=== PATIENT | male | born 1995 | race American Indian/Alaskan Native ===

== ENCOUNTER 2020-11-27 00:58 | Emergency (ER) | payer OTHER ==
[2020-11-27] MEDS ORDERED: methylPREDNISolone Sod Succinate 125 MG/2 ML INJ IV ONE (02:31)
[2020-11-27] MEDS ORDERED: ALBUTEROL 2.5 MG/3 ML NEBU IH ONE (02:31)
[2020-11-27] MEDS ORDERED: IPRATROPIUM 0.02% NEBU 2.5 ML IH ONE (02:31)
[2020-11-27] MEDS ORDERED: MAGNESIUM SULFATE 2 GM/50 ML BAG IV ONE (02:37)
--- NOTE | 2020-11-27 03:13 | XRay Report ---
CHEST 1 VIEW 11/27/2020 2:02 AM INDICATION / CLINICAL INFORMATION: dyspnea, wheezing. COMPARISON: None available. FINDINGS: SUPPORT DEVICES: None. HEART / MEDIASTINUM: No significant abnormality. LUNGS / PLEURA: No significant pulmonary or pleural abnormality. No pneumothorax. ADDITIONAL FINDINGS: No significant additional findings. IMPRESSION: 1. No acute findings. Signer Name: Yaakov Ricks MD Signed: 11/27/2020 3:08 AM Workstation Name: [id number]
--- NOTE | 2020-11-27 04:35 | Emergency Department Report ---
ED Shortness of Breath HPI - General Chief Complaint: Dyspnea/Respdistress Stated Complaint: ASTHMA Source: patient Mode of arrival: Ambulatory Limitations: No Limitations - History of Present Illness Initial Comments: Patient is a 25-year-old -[place] male with a history of asthma and who usually uses albuterol inhaler at home as needed for shortness of breath presents to the ED with worsening shortness of breath, persistent dry cough and chest tightness and wheezing for the last 1 week, worse in the last 2 days. Patient states that in the last 6 hours, the shortness of breath and wheezing and chest tightness have worsened. Patient states that he ran out of his albuterol inhaler a week ago and has not had it refilled because he does not have insurance and he also does not have a primary care physician. Patient denies dizziness, syncope, fever, chills, nausea, vomiting, chest pain, abdominal pain, neck pain, diarrhea, lightheadedness, headache, change in vision, sore throat, nasal and sinus congestion. MD Complaint: shortness of breath, cough, "asthma attack" -: Sudden, week(s) (1) Severity: severe Pain Scale: 7 Quality: other (tightness) Consistency: constant Improves With: nothing Worsens With: nothing Known History Of: asthma Context: recent URI Associated Symptoms: denies other symptoms, cough Treatments Prior to Arrival: none - Related Data Home Oxygen Therapy: No Previous Rx's Medication Instructions Recorded Last Taken Type Albuterol Sulfate [Proventil Hfa] 1 - 2 puff IH Q6H PRN #1 hfa.aer.ad 11/27/20 Unknown Rx Benzonatate [Tessalon Perles] 100 mg PO Q8HR #30 capsule 11/27/20 Unknown Rx Cetirizine HCl [Zyrtec 10mg tab] 10 mg PO DAILY #30 tablet 11/27/20 Unknown Rx methylPREDNISolone [Medrol 4MG 4 mg PO DAILY #21 tab.ds.pk 11/27/20 Unknown Rx DOSEPAK (21 tabs)] Allergies Allergy/AdvReac Type Severity Reaction Status Date / Time No Known Allergies Allergy Unverified 11/27/20 01:39 ED Review of Systems ROS: Stated complaint: ASTHMA Other details as noted in HPI Constitutional: denies: chills, fever Eyes: denies: eye pain, eye discharge, vision change ENT: denies: ear pain, throat pain Respiratory: cough, shortness of breath, wheezing Cardiovascular: chest pain (chest tightness). denies: palpitations Endocrine: no symptoms reported Gastrointestinal: denies: abdominal pain, nausea, diarrhea Genitourinary: denies: urgency, dysuria Musculoskeletal: denies: back pain, joint swelling, arthralgia Skin: denies: rash, lesions Neurological: denies: headache, weakness, paresthesias Psychiatric: denies: anxiety, depression Hematological/Lymphatic: denies: easy bleeding, easy bruising ED Past Medical Hx - Past Medical History Hx Asthma: Yes - Surgical History Past Surgical History?: No - Social History Smoking Status: Never Smoker Substance Use Type: None - Medications Home Medications: Home Medications Medication Instructions Recorded Confirmed Last Taken Type Albuterol Sulfate [Proventil Hfa] 1 - 2 puff IH Q6H PRN #1 hfa.aer.ad 11/27/20 Unknown Rx Benzonatate [Tessalon Perles] 100 mg PO Q8HR #30 capsule 11/27/20 Unknown Rx Cetirizine HCl [Zyrtec 10mg tab] 10 mg PO DAILY #30 tablet 11/27/20 Unknown Rx methylPREDNISolone [Medrol 4MG 4 mg PO DAILY #21 tab.ds.pk 11/27/20 Unknown Rx DOSEPAK (21 tabs)] ED Physical Exam - General Limitations: No Limitations General appearance: alert, in no apparent distress - Head Head exam: Present: atraumatic, normocephalic, normal inspection - Eye Eye exam: Present: normal appearance, PERRL, EOMI Pupils: Present: normal accommodation - ENT ENT exam: Present: normal exam, normal orophraynx, mucous membranes moist, TM's normal bilaterally, normal external ear exam - Neck Neck exam: Present: normal inspection, full ROM - Respiratory Respiratory exam: Present: wheezes (Diffuse coarse wheezes throughout), accessory muscle use. Absent: respiratory distress, rales, rhonchi, chest wall tenderness, prolonged expiratory - Cardiovascular Cardiovascular Exam: Present: normal rhythm, tachycardia, normal heart sounds. Absent: systolic murmur, diastolic murmur, rubs, gallop - GI/Abdominal GI/Abdominal exam: Present: soft, normal bowel sounds. Absent: tenderness, guarding, rebound, hyperactive bowel sounds, hypoactive bowel sounds, organomegaly - Extremities Exam Extremities exam: Present: normal inspection, full ROM, normal capillary refill - Back Exam Back exam: Present: normal inspection, full ROM. Absent: tenderness, CVA tenderness (R), CVA tenderness (L), muscle spasm, paraspinal tenderness, vertebral tenderness - Neurological Exam Neurological exam: Present: alert, oriented X3, CN II-XII intact, normal gait, reflexes normal - Psychiatric Psychiatric exam: Present: normal affect, normal mood - Skin Skin exam: Present: warm, dry, intact, normal color. Absent: rash ED Course Vital Signs 11/27/20 01:38 Temperature 98.0 F Pulse Rate 113 H Respiratory 18 Rate Blood Pressure 136/106 O2 Sat by Pulse 94 Oximetry ED Medical Decision Making - Radiology Data Radiology results: report reviewed, image reviewed [address] [address] XRay Report Signed Patient: REGGIE LIMA MR#: [id number] : 1995 Acct:[id number] Age/Sex: 25 / M ADM Date: 11/27/20 Loc: ED Attending Dr: Ordering Physician: RAO CRUZ Date of Service: 11/27/20 Procedure(s): XR chest 1V ap Accession Number(s): [id number] cc: RAO CRUZ Fluoro Time In Minutes: CHEST 1 VIEW 11/27/2020 2:02 AM INDICATION / CLINICAL INFORMATION: dyspnea, wheezing. COMPARISON: None available. FINDINGS: SUPPORT DEVICES: None. HEART / MEDIASTINUM: No significant abnormality. LUNGS / PLEURA: No significant pulmonary or pleural abnormality. No pneumothorax. ADDITIONAL FINDINGS: No significant additional findings. IMPRESSION: 1. No acute findings. Signer Name: Yaakov Ricks MD Signed: 11/27/2020 3:08 AM Workstation Name: [id number] Transcribed By: SS Dictated By: Yaakov Ricks MD Electronically Authenticated By: Yaakov Ricks MD Signed Date/Time: 11/27/20307 DD/ 7 TD/TT: - Medical Decision Making This is a 25-year-old -[place] male with a history of asthma and who usually uses albuterol inhaler at home as needed for shortness of breath presents to the ED with worsening shortness of breath, persistent dry cough and chest tightness and wheezing for the last 1 week, worse in the last 2 days. Patient states that in the last 6 hours, the shortness of breath and wheezing and chest tightness have worsened. Patient states that he ran out of his albuterol inhaler a week ago and has not had it refilled because he does not have insurance and he also does not have a primary care physician. In the ED, patient is alert and oriented x4 and is not in any distress. Patient was treated in the ED with albuterol nebulizer and ipratropium nebulizer in the ED as well as Solu-Medrol 125 mg intramuscular injection. Patient also received magnesium sulfate 2 g IV x1. Chest x-ray shows no acute cardiopulmonary abn ormalities or pneumonitis. On reevaluation, patient's wheezing resolved with medication, patient felt better, oxygen saturation is 99% to 100% in room air and patient is hemodynamically stable. Patient was discharged home with a prescription of a refill of albuterol inhaler, Medrol Dosepak and cough medication. Patient was advised to follow-up with his primary care physician in 3 to 5 days for reevaluation. Patient was also advised return to the ED immediately if symptoms get worse. - Differential Diagnosis Asthma; Bronchitis; Reactive airway disease; Pneumonia; Covid-19; URI Critical care attestation.: If time is entered above; I have spent that time in minutes in the direct care of this critically ill patient, excluding procedure time. ED Disposition Clinical Impression: Shortness of breath Acute asthma exacerbation Qualifiers: Asthma severity: unspecified severity Asthma persistence: intermittent Qualified Code(s): J45.21 - Mild intermittent asthma with (acute) exacerbation Reactive airway disease with wheezing with status asthmaticus Qualifiers: Asthma severity: unspecified severity Asthma persistence: unspecified Qualified Code(s): J45.902 - Unspecified asthma with status asthmaticus Disposition: - TO HOME OR SELFCARE Is pt being admited?: No Does the pt Need Aspirin: No Condition: Stable Instructions: Shortness of Breath, Adult, [id number], Asthma, Adult, [id number] Additional Instructions: A chest x-ray shows no acute cardiopulmonary abnormalities or pneumonitis. Take medication as advised, drink plenty of fluids and follow-up with your primary care physician in 3 to 5 days for reevaluation. Return to the ED immediately if symptoms get worse. Prescriptions: methylPREDNISolone [Medrol 4MG DOSEPAK (21 tabs)] 4 mg PO DAILY #21 tab.ds.pk Albuterol Sulfate [Proventil Hfa] 1 - 2 puff IH Q6H PRN #1 hfa.aer.ad PRN Reason: Dyspnea Benzonatate [Tessalon Perles] 100 mg PO Q8HR #30 capsule Cetirizine HCl [Zyrtec 10mg tab] 10 mg PO DAILY #30 tablet Referrals: [facility] [Provider Group] - 3-5 Days [facility] [Outside] - 3-5 Days Forms: Work/School Release Form(ED) Time of Disposition: 04:37 Print Language: PASHTO
[2020-11-27 05:59] VITALS: BP 144/85
== END 2020-11-27 04:50 | disposition home or self-care (01) ==
LOC: ED 00:58
DX: J45.901 Unspecified asthma with (acute) exacerbation (principal); R06.02 Shortness of breath; Z79.899 Other long term (current) drug therapy
CPT/HCPCS: 71045; 94644; 96365; 96375; 99283; J2930; J3475